=== PATIENT | male | born 1975 | race Caucasian/White ===

== ENCOUNTER 2018-03-06 21:30 | Emergency (ER) | payer OTHER ==
[~2018-03-06] VITALS: Ht 177.8 cm; Wt 122.5 kg
[~2018-03-06 21:30] MED LIST: ACET325 PO; IBUP400 PO; MELO7.5 PO; METF500 PO; Prinivil10 MG; ZESTORETIC 20-121 E1 PO
[2018-03-06] MEDS ORDERED: NAPR500 PO (21:52)
== END 2018-03-06 23:50 | disposition home or self-care (01) ==
LOC: ER 21:30
DX: R21 Rash and other nonspecific skin eruption (principal); R20.2 Paresthesia of skin; I10 Essential (primary) hypertension; E66.01 Morbid (severe) obesity due to excess calories; Z87.891 Personal history of nicotine dependence
CPT/HCPCS: 99284

== ENCOUNTER → 2018-05-07 | Outpatient (CLI) | payer OTHER ==
[~2018-05-07] MED LIST changes: +NAPR500 PO
[2018-05-07 20:15] LABS: Bilirubin, Urine Neg (Neg); Blood, Urine Neg (Neg); Glucose Qualitative, Urine Neg (Neg); Ketones, Urine Neg (Neg); Leukocyte Esterase, Urine Neg (Neg); Nitrite, Urine Neg (Neg); Protein, Urine Neg (Neg); Specific Gravity, Urine 1.005 (1.003-1.022); Urobilinogen, Urine NORM (Normal); pH, Urine 6.5 (5.0-8.0)
[2018-05-07 20:18] LABS: Appearance, Urine Clear (Clear); Color, Urine Yellow (P-Yellow)
[2018-05-07 20:47] LABS: Protein, Urine Random <5.0 mg/dL (0.0-11.9)
== END | disposition home or self-care (01) ==
LOC: LAB SHORT 19:56 → LAB 19:56
DX: R94.4 Abnormal results of kidney function studies (principal)
CPT/HCPCS: 81003; 82570; 84156

== ENCOUNTER → 2021-02-11 | Outpatient (CLI) | payer OTHER ==
[2021-02-12 14:18] LABS: C DIFFICILE DNA NEGATIVE (Negative)
== END | disposition home or self-care (01) ==
LOC: LAB SHORT 12:12
PROVIDERS: Physician Assistant
DX: R19.7 Diarrhea, unspecified (principal)
CPT/HCPCS: 87493

== ENCOUNTER → 2024-11-24 | Outpatient (CLI) | payer OTHER | LOC: LAB 10:59 → LAB SHORT 10:59 | DX: Z01.812 Encounter for preprocedural laboratory examination (principal); E66.813 Obesity, class 3; Z68.42 Body mass index [BMI] 45.0-49.9, adult | CPT/HCPCS: 87338 ==

== ENCOUNTER 2024-12-07 01:52 | Day surgery (SDC) | payer OTHER ==
[2024-12-07] MEDS ORDERED: RASUVO SC (14:58)
[2024-12-07] MEDS ORDERED: Remicade100 MG IV (14:59)
[2024-12-07] MEDS ORDERED: MULVITA PO (14:59)
[2024-12-07] MEDS ORDERED: OMEGA-3 FISH O1 EAC6 PO (15:00)
[2024-12-07] MEDS ORDERED: ASCO500 PO (15:00)
[2024-12-07] MEDS ORDERED: [UNRECOGNIZED DRUG - OTHER] PO (15:00)
[2024-12-07] MEDS ORDERED: FOLI1 PO (15:01)
[2024-12-07] MEDS ORDERED: THERA-D2000 UNIT PO (15:01)
[2024-12-07] MEDS ORDERED: COENZYME Q-10200 M1 PO (15:01)
[2024-12-07] MEDS ORDERED: CAL MAG ZINC PO (15:02)
[2024-12-07] MEDS ORDERED: POLY500 PO (15:02)
[2024-12-07 15:04] VITALS: BP 158/97
[2024-12-07] MEDS ORDERED: Infliximab-DYYB 500 MG in NS 250 ML IV SCH (15:30)
[2024-12-07 16:08] LABS: BASOPHILS ABSOLUTE AUTO 0.02 K/mm3 (0.00-0.23); BASOPHILS PERCENT AUTO 0 % (0-2); EOSINOPHILS ABSOLUTE AUTO 0.06 K/mm3 (0.00-0.68); EOSINOPHILS PERCENT AUTO 1 % (0-6); Hematocrit 45.8 % (37.0-53.0); Hemoglobin 14.7 g/dL (13.5-17.5); IMMATURE GRAN ABSOLUTE AUTO 0.02 K/mm3 (0.00-0.10); IMMATURE GRAN PERCENT AUTO 0 % (0-1); LYMPHOCYTES ABSOLUTE AUTO 1.16 K/mm3 (0.84-5.20); LYMPHOCYTES PERCENT AUTO 16 % (21-46); MONOCYTES ABSOLUTE AUTO 0.57 K/mm3 (0.16-1.47); MONOCYTES PERCENT AUTO 8 % (4-13); Mean Corpuscular HGB Conc 32.1 g/dL (31.5-36.5); Mean Corpuscular Volume 92 fL (80-100); NEUTROPHILS ABSOLUTE AUTO 5.40 K/mm3 (1.96-9.15); NEUTROPHILS PERCENT AUTO 75 % (41-73); NRBC ABSOLUTE 0.00 K/mm3 (0.00-0.02); NRBC Auto 0.0 /100 WBC (0.0-0.2); Platelet Count 197 K/mm3 (150-400); RDW Coefficient Variation 14.5 % (11.7-14.2); RDW Standard Deviation 49.2 fL (35.1-46.3)
[2024-12-07 16:29] VITALS: BP 129/65
[2024-12-07 16:43] VITALS: BP 132/70
[2024-12-07 16:51] LABS: Alanine Aminotransfer (ALT/SGP 71.0 U/L (12-78); Albumin, Blood 3.5 g/dL (3.4-5.0); Albumin/Globulin Ratio 1.0 (0.8-1.8); Anion Gap 7.0 mmol/L (3-11); Aspartate Aminotrans (AST/SGOT 30.0 U/L (12-37); Bilirubin, Total 0.8 mg/dL (0.1-1.0); Blood Urea Nitrogen 17.0 mg/dL (8-24); CO2, Blood 28.0 mmol/L (21-32); Calcium, Blood 9.1 mg/dL (8.5-10.1); Chloride, Blood 107.0 mmol/L (98-108); Creatinine, Blood 0.61 mg/dL (0.60-1.20); Globulin, Blood 3.4 g/dL (2.2-4.0); Glucose, Blood 103.0 mg/dL (70-99); Potassium, Blood 3.7 mmol/L (3.5-5.5); Sodium, Blood 138.0 mmol/L (136-145); Total Protein, Blood 6.9 g/dL (6.4-8.2)
[2024-12-07 16:59] VITALS: BP 130/64
[2024-12-07 17:14] VITALS: BP 120/64
[2024-12-07 17:29] VITALS: BP 128/69
== END 2024-12-07 18:08 | disposition home or self-care (01) ==
LOC: ATC 01:52
DX: M06.00 Rheumatoid arthritis without rheumatoid factor, unspecified site (principal); I10 Essential (primary) hypertension; Z88.8 Allergy status to other drugs, medicaments and biological substances; Z87.891 Personal history of nicotine dependence
CPT/HCPCS: 80053; 85025; 96365; 96366; A9270; J7050; Q5103

== ENCOUNTER 2024-12-23 00:51 | Day surgery (SDC) | payer OTHER ==
[~2024-12-23 00:51] MED LIST changes: +ASCO500 PO; +CAL MAG ZINC PO; +COENZYME Q-10200 M1 PO; +FOLI1 PO; +MULVITA PO; +OMEGA-3 FISH O1 EAC6 PO; +POLY500 PO; +RASUVO SC; +Remicade100 MG IV; +THERA-D2000 UNIT PO; +[UNRECOGNIZED DRUG - OTHER] PO
[2024-12-23] MEDS ORDERED: Infliximab-DYYB 500 MG in NS 250 ML IV SCH (08:25)
[2024-12-23 08:59] LABS: BASOPHILS ABSOLUTE AUTO 0.02 K/mm3 (0.00-0.23); BASOPHILS PERCENT AUTO 0 % (0-2); EOSINOPHILS ABSOLUTE AUTO 0.04 K/mm3 (0.00-0.68); EOSINOPHILS PERCENT AUTO 1 % (0-6); Hematocrit 46.4 % (37.0-53.0); Hemoglobin 15.0 g/dL (13.5-17.5); IMMATURE GRAN ABSOLUTE AUTO 0.02 K/mm3 (0.00-0.10); IMMATURE GRAN PERCENT AUTO 0 % (0-1); LYMPHOCYTES ABSOLUTE AUTO 1.39 K/mm3 (0.84-5.20); LYMPHOCYTES PERCENT AUTO 26 % (21-46); MONOCYTES ABSOLUTE AUTO 0.43 K/mm3 (0.16-1.47); MONOCYTES PERCENT AUTO 8 % (4-13); Mean Corpuscular HGB Conc 32.3 g/dL (31.5-36.5); Mean Corpuscular Volume 91 fL (80-100); NEUTROPHILS ABSOLUTE AUTO 3.45 K/mm3 (1.96-9.15); NEUTROPHILS PERCENT AUTO 65 % (41-73); NRBC ABSOLUTE 0.00 K/mm3 (0.00-0.02); NRBC Auto 0.0 /100 WBC (0.0-0.2); Platelet Count 140 K/mm3 (150-400); RDW Coefficient Variation 14.8 % (11.7-14.2); RDW Standard Deviation 49.2 fL (35.1-46.3)
[2024-12-23 09:14] VITALS: BP 129/78
[2024-12-23 09:32] VITALS: BP 132/77
[2024-12-23 09:42] LABS: Alanine Aminotransfer (ALT/SGP 52.0 U/L (12-78); Albumin, Blood 3.9 g/dL (3.4-5.0); Albumin/Globulin Ratio 1.3 (0.8-1.8); Anion Gap 8.0 mmol/L (3-11); Aspartate Aminotrans (AST/SGOT 21.0 U/L (12-37); Bilirubin, Total 0.8 mg/dL (0.1-1.0); Blood Urea Nitrogen 25.0 mg/dL (8-24); CO2, Blood 27.0 mmol/L (21-32); Calcium, Blood 9.1 mg/dL (8.5-10.1); Chloride, Blood 107.0 mmol/L (98-108); Creatinine, Blood 0.74 mg/dL (0.60-1.20); Globulin, Blood 3.1 g/dL (2.2-4.0); Glucose, Blood 103.0 mg/dL (70-99); Potassium, Blood 4.0 mmol/L (3.5-5.5); Sodium, Blood 138.0 mmol/L (136-145); Total Protein, Blood 7.0 g/dL (6.4-8.2)
[2024-12-23 09:50] VITALS: BP 137/77
[2024-12-23 10:00] VITALS: BP 134/70
[2024-12-23 10:20] VITALS: BP 141/79
== END 2024-12-23 10:51 | disposition home or self-care (01) ==
LOC: ATC 00:51
DX: M06.00 Rheumatoid arthritis without rheumatoid factor, unspecified site (principal); I10 Essential (primary) hypertension; E66.01 Morbid (severe) obesity due to excess calories; Z68.42 Body mass index [BMI] 45.0-49.9, adult; Z79.899 Other long term (current) drug therapy; Z88.8 Allergy status to other drugs, medicaments and biological substances; Z96.653 Presence of artificial knee joint, bilateral
CPT/HCPCS: 36591; 80053; 85025; 96413; 96415; 99211; A9270; J7050; Q5103

== ENCOUNTER 2025-01-20 03:32 | Day surgery (SDC) | payer OTHER ==
[~2025-01-20] VITALS: Wt 157.2 kg
[2025-01-20 07:54] VITALS: BP 154/79
[2025-01-20] MEDS ORDERED: Infliximab-DYYB 500 MG in NS 250 ML IV SCH (08:10)
[2025-01-20 08:40] LABS: BASOPHILS ABSOLUTE AUTO 0.03 K/mm3 (0.00-0.23); BASOPHILS PERCENT AUTO 1 % (0-2); EOSINOPHILS ABSOLUTE AUTO 0.06 K/mm3 (0.00-0.68); EOSINOPHILS PERCENT AUTO 1 % (0-6); Hematocrit 46.7 % (37.0-53.0); Hemoglobin 15.5 g/dL (13.5-17.5); IMMATURE GRAN ABSOLUTE AUTO 0.02 K/mm3 (0.00-0.10); IMMATURE GRAN PERCENT AUTO 0 % (0-1); LYMPHOCYTES ABSOLUTE AUTO 1.57 K/mm3 (0.84-5.20); LYMPHOCYTES PERCENT AUTO 26 % (21-46); MONOCYTES ABSOLUTE AUTO 0.51 K/mm3 (0.16-1.47); MONOCYTES PERCENT AUTO 8 % (4-13); Mean Corpuscular HGB Conc 33.2 g/dL (31.5-36.5); Mean Corpuscular Volume 92 fL (80-100); NEUTROPHILS ABSOLUTE AUTO 3.87 K/mm3 (1.96-9.15); NEUTROPHILS PERCENT AUTO 64 % (41-73); NRBC ABSOLUTE 0.00 K/mm3 (0.00-0.02); NRBC Auto 0.0 /100 WBC (0.0-0.2); Platelet Count 147 K/mm3 (150-400); RDW Coefficient Variation 15.1 % (11.7-14.2); RDW Standard Deviation 50.4 fL (35.1-46.3)
[2025-01-20 09:09] LABS: Alanine Aminotransfer (ALT/SGP 46.0 U/L (12-78); Albumin, Blood 3.9 g/dL (3.4-5.0); Albumin/Globulin Ratio 1.2 (0.8-1.8); Anion Gap 7.0 mmol/L (3-11); Aspartate Aminotrans (AST/SGOT 27.0 U/L (12-37); Bilirubin, Total 0.6 mg/dL (0.1-1.0); Blood Urea Nitrogen 29.0 mg/dL (8-24); CO2, Blood 28.0 mmol/L (21-32); Calcium, Blood 9.2 mg/dL (8.5-10.1); Chloride, Blood 108.0 mmol/L (98-108); Creatinine, Blood 0.78 mg/dL (0.60-1.20); Globulin, Blood 3.3 g/dL (2.2-4.0); Glucose, Blood 97.0 mg/dL (70-99); Potassium, Blood 4.0 mmol/L (3.5-5.5); Sodium, Blood 139.0 mmol/L (136-145); Total Protein, Blood 7.2 g/dL (6.4-8.2)
== END 2025-01-20 10:44 | disposition home or self-care (01) ==
LOC: ATC 03:32
DX: M06.00 Rheumatoid arthritis without rheumatoid factor, unspecified site (principal); M85.80 Other specified disorders of bone density and structure, unspecified site; I10 Essential (primary) hypertension; E66.01 Morbid (severe) obesity due to excess calories; Z68.42 Body mass index [BMI] 45.0-49.9, adult; Z87.891 Personal history of nicotine dependence; Z79.631 Long term (current) use of antimetabolite agent; Z79.899 Other long term (current) drug therapy; Z96.653 Presence of artificial knee joint, bilateral
CPT/HCPCS: 36591; 80053; 85025; 96413; 96415; A9270; J7050; Q5103